=== PATIENT | male | born 1985 | race American Indian/Alaskan Native ===

== ENCOUNTER 2021-05-27 09:12 | Emergency (ER) | payer SELFPAY ==
[2021-05-27 10:00] VITALS: BP 112/63
--- NOTE | 2021-05-27 12:34 | Emergency Department Report ---
ED General Adult HPI - General Chief complaint: Headache Stated complaint: PYSCH EVAL Time Seen by Provider: 05/27/21 12:24 Source: patient Mode of arrival: Ambulatory Limitations: No Limitations - History of Present Illness Initial comments: 35-year-old -[place] male with a history of schizophrenia presents to the emergency room complaining of bilateral feet pain. He states he thinks he had stepped on glass because he decided to throw his shoes away and was walking with hospital socks. Patient denies any opening denies any cuts. Patient then says that he is sick. Patient was supposed to be on risperidone but is currently on no meds for his mental health. Patient's agrees that he is homeless. Said he was somewhere in [place] yesterday but then states that he got the socks from this hospital. Review of patient's visits I do not see an hospital visit for patient. Patient denies any suicidal homicidal ideation. Onset/Timin Severity scale (0 -10): 0 Improves with: none Worsens with: none - Related Data Previous Rx's Medication Instructions Recorded Last Taken Type Ibuprofen [Motrin 600 MG tab] 600 mg PO Q8H PRN #30 tablet 05/27/21 Unknown Rx Allergies Allergy/AdvReac Type Severity Reaction Status Date / Time No Known Allergies Allergy Verified 05/27/21 09:58 ED Review of Systems ROS: Stated complaint: PYSCH EVAL Other details as noted in HPI ED Past Medical Hx - Medications Home Medications: Home Medications Medication Instructions Recorded Confirmed Last Taken Type Ibuprofen [Motrin 600 MG tab] 600 mg PO Q8H PRN #30 tablet 05/27/21 Unknown Rx ED Physical Exam - General Limitations: No Limitations ED Course Vital Signs 05/27/21 09:59 Temperature 98.3 F Pulse Rate 71 Respiratory 16 Rate Blood Pressure 112/63 O2 Sat by Pulse 98 Oximetry Critical care attestation.: If time is entered above; I have spent that time in minutes in the direct care of this critically ill patient, excluding procedure time. ED Disposition Clinical Impression: Bilateral foot pain Disposition: 01 HOME / SELF CARE / HOMELESS Is pt being admited?: No Does the pt Need Aspirin: No Condition: Stable Instructions: Foot Pain, Pain Without a Known Cause Additional Instructions: Recommend Tylenol or Ibuprofen for pain. Prescriptions: Ibuprofen [Motrin 600 MG tab] 600 mg PO Q8H PRN #30 tablet PRN Reason: Pain Referrals: PRIMARY CARE, [Primary Care Provider] - 3-5 Days [facility] [Provider Group] - 3-5 Days Time of Disposition: 12:38
== END 2021-05-27 12:57 | disposition home or self-care (01) ==
LOC: ED 09:12
DX: M79.671 Pain in right foot (principal); M79.672 Pain in left foot; Z79.899 Other long term (current) drug therapy
CPT/HCPCS: 99282